=== PATIENT | male | born 1945 | race Caucasian/White ===

== ENCOUNTER 2020-02-26 06:33 | Day surgery (SDC) | payer OTHER, SELFPAY ==
--- NOTE | 2020-02-23 08:01 | MHC.SHP ---
Pre-Procedural Eval Section A The patient is an INPATIENT: No The History & Physical has been completed within 30 days and I have reviewed it.: Yes Section B Chief Complaint: Cataract left eye Allergies: Allergies Allergy/AdvReac Type Severity Reaction Status Date / Time No Known Allergies Allergy Verified 02/21/20 13:30 Plan Diagnosis/Plan: Unchanged Patient has been examined and remains a candidate for the planned procedure
[2020-02-23 09:49] VITALS: BMI 30.7
--- NOTE | 2020-02-23 15:41 | HO.ANESPROP2 ---
Documented by User: Sarai Marinelli 02/23/20 15:50 HPI - Anesthesia Eval Consult details Narrative: 75yo M for cataract PCP cleared [facility] Past Medical History Medical History Afib Arthritis CHF (congestive heart failure) Diabetes mellitus Elevated cholesterol GERD (gastroesophageal reflux disease) History of back pain History of GI bleed HTN (hypertension) Hx of esophageal varices Kidney disease Surgical History Surgical History History of ERCP History of partial pancreatectomy History of repair of right hip joint History of total bilateral knee replacement (TKR) Hx of cholecystectomy Hx of colonoscopy History of Problems with Anesthesia: Yes (N/V) Social History Social History Are you a primary healthcare administrative assistant to a significant other at home: No Do you presently have visiting nurse or other home services: No Smoking Status: Never smoker Second Hand Smoke Exposure: No Use of substances other than those prescribed or required for medical reasons: No Advance Directives: No Advance Directives Information Provided: No Advance Directives on File: No Meds Allergies Allergy/AdvReac Type Severity Reaction Status Date / Time No Known Allergies Allergy Verified 02/21/20 13:30 Home Medications Medication Instructions Recorded Confirmed Type bumetanide 1 tab PO DAILY 02/23/20 02/23/20 History insulin NPH and regular human unit SUBCUT DAILY 02/23/20 History [Humulin 70/30 U-100 KwikPen] [id number] [Creon] 3 cap PO TID 02/23/20 02/23/20 History lisinopril 1 tab PO DAILY 02/23/20 02/23/20 History metformin 1 tab PO BID 02/23/20 02/23/20 History metoprolol succinate 1 tab PO BID 02/23/20 02/26/20 History nadolol 1 tab PO DAILY 02/23/20 02/23/20 History omeprazole 1 cap PO BID 02/23/20 02/26/20 History tamsulosin 1 cap PO DAILY 02/23/20 02/23/20 History Exam Exam Date and Time: February 23, 2020 1541 Height,Weight and Vital Signs: Height 5 ft 11 in Weight 99.79 kg Pertinent Lab Results Pertinent Lab Results: 02/21/20 BNP elevated at 583 A1C elevated at 10% Narrative Narrative: EKG 02/16/20: SR, nonspecific QRS widening, old ant infart, nonspect ST depression Assessment and Plan Assessment Anesthesia Assessment: Chart Reviewed Documented by User: Kapil Nichols 02/26/20 08:48 PMFSH Past Medical History Medical History Afib Arthritis CHF (congestive heart failure) Diabetes mellitus Elevated cholesterol GERD (gastroesophageal reflux disease) History of back pain History of GI bleed HTN (hypertension) Hx of esophageal varices Kidney disease Surgical History Surgical History History of ERCP History of partial pancreatectomy History of repair of right hip joint History of total bilateral knee replacement (TKR) Hx of cholecystectomy Hx of colonoscopy Social History Social History Are you a primary healthcare administrative assistant to a significant other at home: No Do you presently have visiting nurse or other home services: No Smoking Status: Never smoker Second Hand Smoke Exposure: No Use of substances other than those prescribed or required for medical reasons: No Advance Directives: No Advance Directives Information Provided: No Advance Directives on File: No Meds Allergies Allergy/AdvReac Type Severity Reaction Status Date / Time No Known Allergies Allergy Verified 02/21/20 13:30 Home Medications Medication Instructions Recorded Confirmed Type bumetanide 1 tab PO DAILY 02/23/20 02/23/20 History insulin NPH and regular human unit SUBCUT DAILY 02/23/20 History [Humulin 70/30 U-100 KwikPen] [id number] [Creon] 3 cap PO TID 02/23/20 02/23/20 History lisinopril 1 tab PO DAILY 02/23/20 02/23/20 History metformin 1 tab PO BID 02/23/20 02/23/20 History metoprolol succinate 1 tab PO BID 02/23/20 02/26/20 History nadolol 1 tab PO DAILY 02/23/20 02/23/20 History omeprazole 1 cap PO BID 02/23/20 02/26/20 History tamsulosin 1 cap PO DAILY 02/23/20 02/23/20 History
[2020-02-26 07:45] VITALS: BP 150/80; PULSE 61; RESP 18; TEMP 36.4; O2SAT 97
[2020-02-26] MEDS: Tetracaine HCl/PF 0.5% Oph Sol 4 ML DROPS 1 DROP EYE-LEFT (07:54)
[2020-02-26] MEDS: Cyclopentolate 1 % Ophth Sol 2 ML DRPBTL 1 DROP EYE-LEFT ×3 (07:57→08:09)
[2020-02-26] MEDS: Tropicamide 1 % Ophth Sol 3 ML BTL 1 DROP EYE-LEFT ×3 (07:58→08:11)
[2020-02-26 08:19] LABS: Glucose, Whole Blood 224 mg/dL (60-115)
--- NOTE | 2020-02-26 10:06 | HO.PNOPH ---
Ophthalmology Procedure Procedure Ophthalmology Viscoelastic: Jose L Kayet Dual Pack Pro Ophthalmology Lenses: TECNIS [id number] (21) Procedure Notes: PREOPERATIVE DIAGNOSIS: Decreased visual acuity left eye secondary to cataract POSTOPERATIVE DIAGNOSIS: Same PROCEDURE: Left cataract extraction with intraocular lens insertion SURGEON: Riccardo Rangel M.D. ANESTHESIA: Topical/MAC ESTIMATED BLOOD LOSS: None COMPLICATIONS: None After obtaining informed consent, the patient was brought to the operation room suite and placed in the supine position. After adequate sedation per anesthesia, topical drops of Tetracaine were given to the left eye. The eye was then prepped and draped in the usual sterile fashion. The operating room microscope was then positioned over the operative eye and a lid speculum placed. A paracentesis was created. Viscoelastic was then instilled into the anterior chamber. A three plane incision was then created temporally, utilizing a 2.85 mm keratome. Capsulotomy forceps were then utilized to create a circular tear capsulotomy. Hydrodissection and hydrodelineation were carried out until adequate mobilization of the nucleus occurred. Phacoemulsification was then utilized to remove the dense central nucleus followed by removal of the cortical material utilizing the automated aspiration irrigation unit. Viscoat elastic was instilled into the posterior capsular bag followed by placement of a posterior chamber intraocular lens without difficulty. The residual Viscoat elastic was then removed utilizing the automated IA machine. The wound was check and found to be watertight. The patient tolerated the procedure well and the lid speculum was removed. Intracameral injection of Vigamox 0.1 mL followed by a subtenon injection of Kenalog-40 0.2 mL were administered. The patient will be seen in the a.m.
[2020-02-26 10:07] VITALS: BP 152/72; PULSE 56; RESP 19; TEMP 36.1; O2SAT 100
[2020-02-26 10:21] VITALS: BP 138/65; PULSE 60; RESP 16; TEMP 36.1; O2SAT 97
--- NOTE | 2020-02-26 16:02 | W.PM.OPN ---
Operative Note Operative Note Narrative: The patient had an ophthalmology?procedure on 02/26/20.? The procedure template fed into the wrong report. Please see ECT progress note 02/26/20 note under neurology section entitled for full ophthalmology procedure note.? The information contained within that report is otherwise complete and accurate.? ?The patient did not have ECT on this date.?
== END 2020-02-26 10:41 | disposition home or self-care (01) ==
PROVIDERS: PCP Internal Medicine; Visit Provider Ophthalmology
PROC: (CPT 66985; principal; 2020-02-26 09:10)
DX: H25.12 Age-related nuclear cataract, left eye (principal); H54.7 Unspecified visual loss; I10 Essential (primary) hypertension; K76.0 Fatty (change of) liver, not elsewhere classified; N28.1 Cyst of kidney, acquired; E11.9 Type 2 diabetes mellitus without complications; E83.119 Hemochromatosis, unspecified; Z79.899 Other long term (current) drug therapy; Z79.4 Long term (current) use of insulin
CPT/HCPCS: 66984; 82947; J2250; J3010; J3300; V2632

== ENCOUNTER 2020-03-11 06:50 | Day surgery (SDC) | payer OTHER, SELFPAY ==
[2020-03-04 12:11] VITALS: BMI 30.7
--- NOTE | 2020-03-07 09:40 | MHC.SHP ---
Pre-Procedural Eval Section A The patient is an INPATIENT: No The History & Physical has been completed within 30 days and I have reviewed it.: Yes Section B Chief Complaint: Cataract Right Eye Allergies: Allergies Allergy/AdvReac Type Severity Reaction Status Date / Time No Known Allergies Allergy Verified 02/21/20 13:30 Plan Diagnosis/Plan: Unchanged Patient has been examined and remains a candidate for the planned procedure
--- NOTE | 2020-03-08 13:28 | HO.ANESPROP2 ---
Documented by User: Sarai Marinelli 03/08/20 13:30 HPI - Anesthesia Eval Consult details Narrative: 75yo M for cataract PCP cleared s/p L eye 02/26/20 [facility] Past Medical History Medical History Afib Arthritis CHF (congestive heart failure) Diabetes mellitus Elevated cholesterol GERD (gastroesophageal reflux disease) History of back pain History of GI bleed HTN (hypertension) Hx of esophageal varices Kidney disease Surgical History Surgical History H/O left cataract extraction History of ERCP History of partial pancreatectomy History of repair of right hip joint History of total bilateral knee replacement (TKR) Hx of cholecystectomy Hx of colonoscopy Social History Social History Smoking Status: Never smoker Second Hand Smoke Exposure: No Advance Directives: No Advance Directives Information Provided: No Advance Directives on File: No Meds Allergies Allergy/AdvReac Type Severity Reaction Status Date / Time No Known Allergies Allergy Verified 02/21/20 13:30 Home Medications Medication Instructions Recorded Confirmed Type bumetanide 1 tab PO DAILY 02/23/20 03/04/20 History insulin NPH and regular human unit SUBCUT DAILY 02/23/20 History [Humulin 70/30 U-100 KwikPen] [id number] [Creon] 3 cap PO TID 02/23/20 03/04/20 History lisinopril 1 tab PO DAILY 02/23/20 03/04/20 History metformin 1 tab PO BID 02/23/20 03/04/20 History metoprolol succinate 1 tab PO BID 02/23/20 03/04/20 History nadolol 1 tab PO DAILY 02/23/20 03/04/20 History omeprazole 1 cap PO BID 02/23/20 03/04/20 History tamsulosin 1 cap PO DAILY 02/23/20 03/04/20 History Exam Exam Date and Time: March 08, 2020 1328 Height,Weight and Vital Signs: Height 5 ft 11 in Weight 99.79 kg Narrative Narrative: Labs 02/21/20 BNP elevated at 583 A1C elevated at 10% EKG 02/16/20: SR, nonspecific QRS widening, old ant infart, nonspect ST depression Assessment and Plan Assessment Anesthesia Assessment: Chart Reviewed Documented by User: Delaney Herrera 03/11/20 07:52 [facility] Past Medical History Medical History Afib Arthritis CHF (congestive heart failure) Diabetes mellitus Elevated cholesterol GERD (gastroesophageal reflux disease) History of back pain History of GI bleed HTN (hypertension) Hx of esophageal varices Kidney disease Surgical History Surgical History H/O left cataract extraction History of ERCP History of partial pancreatectomy History of repair of right hip joint History of total bilateral knee replacement (TKR) Hx of cholecystectomy Hx of colonoscopy Social History Social History Smoking Status: Never smoker Second Hand Smoke Exposure: No Advance Directives: No Advance Directives Information Provided: No Advance Directives on File: No Meds Allergies Allergy/AdvReac Type Severity Reaction Status Date / Time No Known Allergies Allergy Verified 02/21/20 13:30 Home Medications Medication Instructions Recorded Confirmed Type bumetanide 1 tab PO DAILY 02/23/20 03/04/20 History insulin NPH and regular human unit SUBCUT DAILY 02/23/20 History [Humulin 70/30 U-100 KwikPen] [id number] [Creon] 3 cap PO TID 02/23/20 03/04/20 History lisinopril 1 tab PO DAILY 02/23/20 03/04/20 History metformin 1 tab PO BID 02/23/20 03/04/20 History metoprolol succinate 1 tab PO BID 02/23/20 03/04/20 History nadolol 1 tab PO DAILY 02/23/20 03/04/20 History omeprazole 1 cap PO BID 02/23/20 03/04/20 History tamsulosin 1 cap PO DAILY 02/23/20 03/04/20 History Exam Airway Mallampati Class: II (Rop 5 teeth caps) TM Dist: >3cm Neck ROM: Full Heart: RRR Lungs: CTA BL Assessment and Plan Assessment Anesthesia Assessment: Anesthesia Plan Discussed and Chart Reviewed Final Anesthetic Review NPO: Yes (Sip water with meds) ASA Class: III Final Preanesthetic Review: No Changes in Pt Med Stat and Consent Obtained/Reviewed Patient Risk: Low Procedure Risk: Intermediate Anesthetic Plan Anesthetic Plan: MAC: Disposition: Standard PACU
[2020-03-11 07:53] LABS: Glucose, Whole Blood 130 mg/dL (60-115)
[2020-03-11] MEDS: Tropicamide 1 % Ophth Sol 3 ML BTL 1 DROP EYE-RIGHT ×3 (08:07→08:16)
[2020-03-11] MEDS: Tetracaine HCl/PF 0.5% Oph Sol 4 ML DROPS 1 DROP EYE-RIGHT (08:09)
[2020-03-11 08:21] VITALS: BP 164/81; PULSE 58; RESP 16; TEMP 36.2; O2SAT 97
--- NOTE | 2020-03-11 08:56 | HO.PNOPHT ---
Ophthalmology Procedure Procedure Ophthalmology Viscoelastic: Jose L Kayet Dual Pack Pro Ophthalmology Lenses: TECNIS [id number] (20.5) Procedure Notes: PREOPERATIVE DIAGNOSIS: Decreased visual acuity right eye secondary to cataract POSTOPERATIVE DIAGNOSIS: Same PROCEDURE: Right cataract extraction with intraocular lens insertion SURGEON: Riccardo Rangel M.D. ANESTHESIA: Topical/MAC ESTIMATED BLOOD LOSS: None COMPLICATIONS: None After obtaining informed consent, the patient was brought to the operating room suite and placed in the supine position. After adequate sedation per anesthesia, topical drops of Tetracaine were given to the right eye. The eye was then prepped and draped in the usual sterile fashion. The operating room microscope was then positioned over the operative eye and a lid speculum placed. A paracentesis was created. Viscoelastic was then instilled into the anterior chamber. A three plane incision was then created temporally, utilizing a 2.85 mm keratome. Capsulotomy forceps were then utilized to create a circular tear capsulotomy. Hydrodissection and hydrodelineation were carried out until adequate mobilization of the nucleus occurred. Phacoemulsification was then utilized to remove the dense central nucleus followed by removal of the cortical material utilizing the automated aspiration irrigation unit. Viscoelastic was instilled into the posterior capsular bag followed by placement of a posterior chamber intraocular lens without difficulty. The residual Viscoelastic was then removed utilizing the automated IA machine. The wound was checked and found to be watertight. The patient tolerated the procedure well and the lid speculum was removed. Intracameral injection of Vigamox 0.1 mL followed by a subtenon injection of Kenalog-40 0.2 mL were administered. The patient will be seen in the a.m.
[2020-03-11 08:58] VITALS: BP 167/84; PULSE 57; RESP 18; TEMP 36.6; O2SAT 96
--- NOTE | 2020-03-11 09:04 | PC.NURSE ---
Pt receiv ed 100 ml LR intraop
== END 2020-03-11 23:59 | disposition home or self-care (01) ==
PROVIDERS: PCP Internal Medicine; Visit Provider Ophthalmology
PROC: (CPT 66985; principal; 2020-03-11 08:50)
DX: H25.11 Age-related nuclear cataract, right eye (principal); H54.7 Unspecified visual loss; I11.0 Hypertensive heart disease with heart failure; I50.9 Heart failure, unspecified; I48.91 Unspecified atrial fibrillation; E11.9 Type 2 diabetes mellitus without complications; Z79.4 Long term (current) use of insulin; Z79.899 Other long term (current) drug therapy; Z90.411 Acquired partial absence of pancreas; Z96.653 Presence of artificial knee joint, bilateral
CPT/HCPCS: 66984; 82947; J2250; J3010; J3300; V2632

== ENCOUNTER → 2020-03-11 09:10 | Day surgery (SDC) | payer OTHER, SELFPAY | END | disposition home or self-care (01) | PROVIDERS: Visit Provider Ophthalmology | DX: H25.12 Age-related nuclear cataract, left eye (principal); Z53.9 Procedure and treatment not carried out, unspecified reason ==